=== PATIENT | female | born 1955 | race Caucasian/White ===

== ENCOUNTER → 2019-11-02 13:35 | Outpatient (CLI) | payer BC, MEDICARE, SELFPAY ==
--- NOTE | ~2019-11-02 | MR_ITS ---
EXAMINATION: MR foot RT wo con DATE: 11/02/2019 14:22 INDICATION: Charcot right foot TECHNIQUE: Magnetic resonance imaging (MRI) of the right fore/mid foot was performed without intraven ous contrast. Sequences included sagittal T1-weighted FSE, sagittal fluid sensitive FSE STIR, coronal PD-weighted FS FSE, coronal T1-weighted FSE, axial PD-weighted FS FSE, and axial PD-weighted FSE. COMPARISON: 11/10/11 FINDINGS: New hallux valgus with moderate secondary osteoarthritis. Advanced osteoarthritis consistent with Celeste rcot joint at the right midfoot with cystic changes and fragmentation involving the medial and mid cu neiforms and base of the second and third metatarsals with prominent associated marrow edema. Mild os teoarthritis at the first, fourth and fifth tarsal metatarsal and subtalar joints. Lisfranc ligament appears to remain intact. There is fusiform thickening with intermediate signal along the central com ponent of the plantar aponeurosis consistent with plantar fibromatosis. The region measures approxima tely 1.7 cm proximal to distal and 5 x 7 mm in maximal orthogonal dimensions. The visualized portions of the remaining flexor and extensor tendons appear normal. There is diffuse fatty atrophy and incre ased fluid signal throughout the intrinsic musculature of the foot likely related to acute on chronic denervation change. No joint effusions or other abnormal fluid collections. IMPRESSION: 1. Charcot joint involving the second and third tarsal metatarsal joints. 2. Moderate hallux valgus with moderate osteoarthritis at the first metatarsophalangeal joint. 3. Small region of likely plantar fibromatosis along the central component of the plantar aponeurosis . Reviewed, dictated and finalized at location A. IMPRESSION: 1. Charcot joint involving the second and third tarsal metatarsal joints. 2. Moderate hallux valgus with moderate osteoarthritis at the first metatarsoph alangeal joint. 3. 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
== END ==
PROVIDERS: PCP Internal Medicine; Visit Provider Podiatrist Foot & Ankle Surgery
DX: I73.9 Peripheral vascular disease, unspecified (principal); M20.11 Hallux valgus (acquired), right foot
CPT/HCPCS: 73718

== ENCOUNTER → 2019-11-06 12:41 | Outpatient (CLI) | payer BC, MEDICARE, SELFPAY ==
--- NOTE | ~2019-11-06 | DEXA_ITS ---
Bone Density Report Name: Melody Raphael Age: 64 Sex: Female Ethnicity: White Date of : 1955 Indication: postmenopausal osteoporosis; height loss; Referring Provider: RAMOS, PEDRO Mcmanus Study: Bone densitometry was performed. Exam Date: November 06, 2019 Accession number: [id number] Bone Density: Region BMD T-score Z-score Classification AP Spine (L1-L4) 0.832 -2.0 -0.3 Osteopenia Femoral Neck (Left) 0.695 -1.4 0.1 Osteopenia Total Hip (Left) 0.787 -1.3 -0.1 Osteopenia Femoral Neck (Right) 0.636 -1.9 -0.5 Osteopenia Total Hip (Right) 0.774 -1.4 -0.2 Osteopenia Total Hip Mean 0.781 -1.4 -0.2 Osteopenia World Health Organization criteria for BMD impression classify patients as: Normal (T-score at or above -1.0), Osteopenia (T-score between -1.0 and -2.5), or Osteoporosis (T-score at or below -2.5). 10-year Fracture Risk(1): Major Osteoporotic Fracture 9.5% Hip Fracture 1.2% Reported Risk Factors: [place] (), Neck BMD=0.636, BMI=29.8 (1) FRAX(R) Version 3.08. Fracture probability calculated for an untreated patient. Fracture probability may be lower if the patient has received treatment. Previous Exams: Region Exam Age BMD T-score BMD Change BMD Change Date g/cm2 vs Baseline vs Previous AP Spine(L1-L4) 11/06/2019 64 0.832 -2.0 0.015 0.062* 03/18/2015 59 0.770 -2.5 -0.047* -0.047* 07/31/2010 54 0.817 -2.1 Total Hip(Left) 11/06/2019 64 0.787 -1.3 0.033* 0.031* 03/18/2015 59 0.756 -1.5 0.002 0.002 07/31/2010 54 0.754 -1.5 Total Hip(Right) 11/06/2019 64 0.774 -1.4 0.037* 0.025 03/18/2015 59 0.749 -1.6 0.012 0.012 07/31/2010 54 0.737 -1.7 *Denotes significance at 95% confidence level, LSC for AP Spine = 0.022 g/cm2, LSC for Total Hip = 0.027 g/cm2 Clinical Information Provided by Patient: Has used the following medications: Vitamin D, Calcium, mtv Patient maximum height was 63 Menopause Age: 54 No regular weight bearing exercise Drinks caffeinated beverages Onset of menses at age 13 Number of children 0 Impression: The patient has low bone mass, based on the Total Spine T-score. The patient has an estimated ten-year risk of hip fracture of 1.2% and an estimated ten-year risk of major fracture of 9.5%, based on the WHO FRAX algorithm. No significant bone loss was observed
--- NOTE | ~2019-11-06 | MM_ITS ---
EXAMINATION: MM screening olga BI w valerio HISTORY: Screening mammogram TECHNIQUE: Craniocaudal and mediolateral oblique 3-D tomosynthesis images were obtained and synthetic 2-D images were generated. CAD analysis was submitted and interpreted. COMPARISON: 06/07/2018, 04/22/2017, 04/20/2017, 03/18/2015 BREAST PARENCHYMAL COMPOSITION: The breasts are heterogeneously dense, which may obscure small masses . FINDINGS: Changes of interval stereotactic right breast biopsy are noted. There is no evidence of liss picious mass, calcification, or architectural distortion to suggest malignancy in either breast. Ther e has been no suspicious interval change. IMPRESSION: 1. No mammographic evidence of malignancy. 2. Recommend routine screening mammography in one year. BI-RADS Category 1: Negative Reviewed, dictated and finalized at location A.
== END ==
PROVIDERS: PCP Internal Medicine; Visit Provider Internal Medicine
DX: Z12.31 Encounter for screening mammogram for malignant neoplasm of breast (principal); Z78.0 Asymptomatic menopausal state; M85.89 Other specified disorders of bone density and structure, multiple sites
CPT/HCPCS: 77063; 77067; 77080

== ENCOUNTER → 2020-12-30 07:23 | Outpatient (CLI) | payer BC, MEDICARE, SELFPAY ==
--- NOTE | ~2020-12-30 | MR_ITS ---
EXAMINATION: MR foot RT wo con DATE: 12/30/2020 09:05 INDICATION: Charcot joint at the right foot and ankle TECHNIQUE: Magnetic resonance imaging (MRI) of the right foot was performed without intravenous contr ast which excludes the toes and posterior tuberosity of the calcaneus. Sequences included sagittal T1 -weighted FSE, sagittal fluid sensitive FSE STIR, coronal PD-weighted FS FSE, coronal T1-weighted FSE , axial PD-weighted FS FSE, and axial PD-weighted FSE. COMPARISON: None FINDINGS: Advanced osteoarthritis at the right second-fourth tarsal metatarsal joints and at the medial aspect of the navicular cuneiform joint with associated destructive and cystic bone changes. There is promin ent surrounding marrow edema but no geographic loss of T1 fat signal to suggest ostomy myelitis or ot her pathologic marrow replacing process. Less severe mild osteoarthritis at the right ankle and remai sherri joints in the mid and hindfoot. Hallux valgus with moderate to severe osteoarthritis of the firs t metatarsophalangeal joint. No fracture. The visualized portions of the flexor and extensor tendons are normal. Small amount of fluid along the hernias tendon sheath consistent with mild tenosynovitis. The medial and lateral stabilizing ligaments of the ankle are normal. The Lisfranc ligament complex appears to remain intact. Likely chronic degeneration of the medial collateral ligament complex at th e first metatarsophalangeal joint which appears stretched and attenuated across the medial side of th e head of the first metatarsal. Remaining collateral ligament complex at the second fifth tarsal meta tarsal joints remain normal. No joint effusions. There is likely reactive edema in the soft tissues s urrounding the tarsal metatarsal joints. There is also a diffuse increased fluid signal and moderate fatty atrophy of the intrinsic musculature of the foot consistent with likely acute on chronic denerv ation change such as in the setting of diabetic neuropathy. IMPRESSION: 1. Advanced osteoarthritis at the second-fourth tarsal metatarsal joints and at the configuration bet ween the navicula and medial cuneiform consistent with provided history of Charcot joint. 2. Hallux valgus with moderate to severe osteoarthritis at the first metatarsophalangeal joint. Reviewed, dictated and finalized at location A. IMPRESSION: 1. Advanced osteoarthritis at the second-fourth tarsal metatarsal joints and at the configuration between the navicula and medial cuneiform consistent with pr ovided history of Charcot joint. 2. Hallux valgus with moderate to severe osteoarthritis at the first metatarsop halangeal joint.
== END ==
PROVIDERS: PCP Internal Medicine; Visit Provider Podiatrist Foot & Ankle Surgery
DX: A52.16 Charcot's arthropathy (tabetic) (principal); M20.11 Hallux valgus (acquired), right foot; M19.071 Primary osteoarthritis, right ankle and foot
CPT/HCPCS: 73718

== ENCOUNTER → 2021-01-20 15:19 | Outpatient (CLI) | payer BC, MEDICARE, SELFPAY ==
--- NOTE | ~2021-01-20 | MM_ITS ---
EXAMINATION: MM screening olga BI w valerio HISTORY: Screening mammogram TECHNIQUE: Craniocaudal and mediolateral oblique 3-D tomosynthesis images were obtained and synthetic 2-D images were generated. CAD analysis was submitted and interpreted. COMPARISON: 11/06/2019, 06/07/2018 bilateral screening mammogram examinations BREAST PARENCHYMAL COMPOSITION: The breasts are heterogeneously dense, which may obscure small masses . FINDINGS: There is a 5.2 mm circumscribed mass with halo sign in the posterior left axillary tail, in creased from 3.7 mm size on 11/06/2019. The mammographic appearance is suggestive of benign process. Targeted ultrasound of the left axillary tail is recommended. There is no evidence of suspicious mass, calcification, or architectural distortion to suggest malig cyndi in either breast. There has been no suspicious interval change. IMPRESSION: 1. 5.2 mass at posterior left axillary tail, increased in size from 3.7 mm on 11/06/2019; 2. Targeted ultrasound of left axillary tail 5 mm mass is recommended. BI-RADS Category 0: Incomplete: Needs additional imaging evaluation. Reviewed, dictated and finalized at location A. RICT MANAGER IN TRAINING IMPRESSION: 1. 5.2 mass at posterior left axillary tail, increased in size from 3.7 mm on ; 2. Targeted ultrasound of left axillary tail 5 mm mass is recommended. BI-RADS Category 0: Incomplete: Needs additional imaging evaluation.
== END ==
PROVIDERS: PCP Internal Medicine; Visit Provider Internal Medicine
DX: Z12.31 Encounter for screening mammogram for malignant neoplasm of breast (principal); R92.8 Other abnormal and inconclusive findings on diagnostic imaging of breast
CPT/HCPCS: 77063; 77067

== ENCOUNTER → 2021-02-20 09:08 | Outpatient (CLI) | payer BC, MEDICARE, SELFPAY ==
--- NOTE | ~2021-02-20 | US_ITS ---
US axilla LT 02/20/2021 09:37 Indication: Follow-up left breast mass Procedure: High-resolution Limited ultrasound of the left axilla Comparison: Mammogram dated 01/20/2021 Findings: In the left axillary tail, 14 cm from the nipple there is a 11 mm cyst. Also near this loca tion there is a 1.4 cm lymph node with normal fatty hilum. No suspicious masses to suggest malignancy . No definite mass is identified to correspond to the 5 mm mass seen on mammography. Impression: 1: Probable benign left axillary mass by mammogram. No definite sonographic correlate. There are pat gn cysts and lymph nodes in the left axillary tail. BI-RADS CATEGORY 3-PROBABLY BENIGN FINDING RECOMMENDATION: Six-month follow-up diagnostic left mammogram and possible additional ultrasound sanchez mmended. Reviewed, dictated and finalized at location A. D CARE COORDINATOR Impression: 1: Probable benign left axillary mass by mammogram. No definite sonographic cor relate. There are benign cysts and lymph nodes in the left axillary tail. BI-RADS CATEGORY 3-PROBABLY BENIGN FINDING RECOMMENDATION: Six-month follow-up diagnostic left mammogram and possible bre tional ultrasound recommended.
== END ==
PROVIDERS: PCP Internal Medicine; Visit Provider Internal Medicine
DX: R92.8 Other abnormal and inconclusive findings on diagnostic imaging of breast (principal)
CPT/HCPCS: 76882

== ENCOUNTER 2021-03-25 14:52 | Emergency (ER) | payer OTHER, BC, MEDICARE, SELFPAY ==
[2021-03-25 15:08] VITALS: BP 147/67; PULSE 80; RESP 16; TEMP 36.3; O2SAT 98
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
== END 2021-03-25 16:13 | disposition home or self-care (01) ==
PROVIDERS: Emergency Provider Nurse Practitioner Family; PCP Internal Medicine
DX: M79.622 Pain in left upper arm (principal); M79.7 Fibromyalgia
CPT/HCPCS: 99212; G0463

== ENCOUNTER → 2021-09-01 14:34 | Outpatient (CLI) | payer MEDICARE, SELFPAY ==
--- NOTE | ~2021-09-01 | MMUS_ITS ---
EXAMINATION: MM diagnostic olga LT w valerio, US breast LT complete HISTORY: 5.2 mm circumscribed mass with halo sign in posterior left axillary tail on 01/30/2021 scree sherri mammogram TECHNIQUE: Full field and spot ML, MLO and CC 3-D tomosynthesis images of left breast were performed and synthetic 2-D images were generated. CAD analysis was submitted and interpreted. High resolution left axillary and complete left breast ultrasound including all 4 quadrants and subareolar area was p erformed. COMPARISON: 01/30/2021 bilateral screening mammogram 02/20/2021 left axillary ultrasound BREAST PARENCHYMAL COMPOSITION: The breasts are heterogeneously dense, which may obscure small masses . FINDINGS: MAMMOGRAPHIC FINDINGS: Interval decreased size of left axillary tail circumscribed opacity, currently measuring approximatel y 4.8 mm x 4 mm versus approximately 5.4 x 5.4 mm by comparison mm on 01/20/2021. The circumscribed ma rgins and interval decreased size are most consistent with benign process, likely an axillary tail ly mph node. Occasional benign calcifications. No suspicious mass or architectural distortion, skin thickening or retraction is detected. ULTRASOUND: 1:00 3 cm from nipple: 8 x 8.3 mm sonolucency consistent with cyst 6:00 subareolar: Septated 4.6 x 8.1 x 8 mm cyst 7:00 4 cm from nipple: Parallel circumscribed hypoechoic 3 x 5 mm solid lesion without internal vascu larity or posterior shadowing. 11:00 3 cm from nipple: 11:00 3 cm from nipple: Irregular hypoechoic 3.1 x 3.6 mm mass with mild posterior shadowing. Ultraso und-guided biopsy is recommended. Benign-appearing left axillary lymph nodes are noted. IMPRESSION: 1. Irregular 3.1 x 3.6 mm hypoechoic lesion at 11:00 3 cm from nipple, with mild posterior shadowing; ultrasound-guided biopsy is recommended 2. Ultrasound-guided biopsy of left breast lump o'clock lesion 3 cm from nipple is recommended BI-RADS category 4, suspicious findings. Reviewed, dictated and finalized at location A. IMPRESSION: 1. Irregular 3.1 x 3.6 mm hypoechoic lesion at 11:00 3 cm from nipple, with mil d posterior shadowing; ultrasound-guided biopsy is recommended 2. Ultrasound-guided biopsy of left breast lump o'clock lesion 3 cm from nipple is recommended BI-RADS category 4, suspicious findings.
== END ==
PROVIDERS: PCP Internal Medicine; Visit Provider Internal Medicine
DX: R92.8 Other abnormal and inconclusive findings on diagnostic imaging of breast (principal); N60.02 Solitary cyst of left breast; N63.24 Unspecified lump in the left breast, lower inner quadrant; N63.22 Unspecified lump in the left breast, upper inner quadrant; N63.25 Unspecified lump in the left breast, overlapping quadrants
CPT/HCPCS: 76641; 77061; 77065; G0279

== ENCOUNTER 2021-09-21 09:54 | Outpatient (CLI) | payer MEDICARE, SELFPAY ==
--- NOTE | ~2021-09-21 | US_ITS ---
EXAMINATION: US breast LT limited HISTORY: Left breast mass TECHNIQUE: Limited left breast ultrasound was performed. COMPARISON: 09/01/2021 FINDINGS: Patient presents for ultrasound guided biopsy of a left breast mass identified on recent di agnostic ultrasound. With real-time scanning, the mass has a more cystic appearance than was seen on recent ultrasound. This was discussed with the patient and a course of six-month follow-up targeted u ltrasound was decided upon. IMPRESSION: Probably benign left breast mass. Follow-up targeted left breast ultrasound in six months is recommen ded. BI-RADS category 3, probably benign findings. Reviewed, dictated and finalized at location A. IMPRESSION: Probably benign left breast mass. Follow-up targeted left breast ultrasound in six months is recommended. BI-RADS category 3, probably benign findings.
== END 2021-09-21 09:55 | disposition home or self-care (01) ==
LOC: ANHIMG 09:59
PROVIDERS: PCP Internal Medicine; Visit Provider Internal Medicine
DX: R92.8 Other abnormal and inconclusive findings on diagnostic imaging of breast (principal)
CPT/HCPCS: 76642

== ENCOUNTER 2022-04-20 11:34 | Outpatient (CLI) | payer MEDICARE, SELFPAY ==
--- NOTE | ~2022-04-20 | US_ITS ---
US breast LT limited DATE: 04/20/2022 13:00 INDICATION: Six-month follow-up of mass TECHNIQUE: Targeted ultrasound at 11:00 3 cm from nipple COMPARISON: 04/20/2022 screening mammogram 09/21/2021 Limited left breast ultrasound 09/01/2021 diagnostic left mammogram and complete left breast ultrasound 01/20/2021 bilateral screening mammogram FINDINGS: 11:00 3 cm from nipple: There is an approximately 2.7 x 4 mm hypoechoic lesion with adjacent prominen t vascular color flow signal. Is mildly increased in size compared to 09/01/2021. Ultrasound-guided bi opsy is recommended. IMPRESSION: BI-RADS Category 4: Suspicious abnormality; biopsy should be considered Recommendation: Sonographically guided biopsy of left breast 11:00 lesion [address] Stephen telephoned the report and ultrasound-guided biopsy recommendation on April 20, [address] Weir's voicemail at [phone] Reviewed, dictated and finalized at Location A. Reviewed, dictated and finalized at location A. UTER PUBLISHER IMPRESSION: BI-RADS Category 4: Suspicious abnormality; biopsy should be consid ered Recommendation: Sonographically guided biopsy of left breast 11:00 lesion [address] Stephen telephoned the report and ultrasound-guided biopsy recommendation on [address] Weir's voicemail at [phone]
--- NOTE | ~2022-04-20 | DEXA_ITS ---
Bone Density Report Name: WILLIAM BELL Age: 66 Sex: Female Ethnicity: White Date of : 1955 Indication: postmenopausal; screening for osteoporosis; parental hip fracture; height loss; Referring Provider: RAMOS, PEDRO Mcmanus Study: Bone densitometry was performed. Exam Date: April 20, 2022 Accession number: [id number] Bone Density: Region BMD T-score Z-score Classification AP Spine(L1-L4) 0.867 -1.6 0.2 Osteopenia Femoral Neck (Left) 0.659 -1.7 -0.1 Osteopenia Total Hip (Left) 0.808 -1.1 0.2 Osteopenia Femoral Neck (Right) 0.635 -1.9 -0.3 Osteopenia Total Hip (Right) 0.807 -1.1 0.2 Osteopenia Total Hip Mean 0.808 -1.1 0.2 Osteopenia World Health Organization criteria for BMD impression classify patients as: Normal (T-score at or above -1.0), Osteopenia (T-score between -1.0 and -2.5), or Osteoporosis (T-score at or below -2.5). 10-year Fracture Risk(1): Major Osteoporotic Fracture 18% Hip Fracture 2.0% Reported Risk Factors: [place] (), Neck BMD=0.635, BMI=31.8, parental fracture (1) FRAX(R) Version 3.08. Fracture probability calculated for an untreated patient. Fracture probability may be lower if the patient has received treatment. Clinical Information Provided by Patient: Parent has had a hip fracture Has used the following medications: Vitamin D, Calcium Patient maximum height was 63 Menopause Age: 50 No regular weight bearing exercise Drinks caffeinated beverages Onset of menses at age 13 Number of children 0 Impression: The patient has low bone mass, based on the Right Femoral Neck T-score. The patient has an estimated ten-year risk of hip fracture of 2% and an estimated ten-year risk of major fracture of 18%, based on the WHO FRAX algorithm. The patient has risk factors, including: parental hip fracture. Discussion: BONE DENSITY IS LOW AT ONE OR MORE SKELETAL SITES. This patient's lowest T-score is low at one or more skeletal sites. It meets the World Health Organization's (WHO) criteria for ?low bone mass? (T-score between -1.0 and -2.5). The patient's 10-year risk of fracture as calculated by FRAX is less than the threshold where pharmacological therapy is recommended by the National Osteoporosis Foundation (NOF). However, all treatment decisions require clinical judgment and consideration of individual patient factors, including patient preferences, comorbidities, previous drug use, risk factors not captured in the FRAX model (e.g., frailty, falls, vitamin D deficiency, increased bone turnover, interval significant decline in bone density) and possible under or overestimation of fracture risk by FRAX. The patient should follow a healthful lifestyle (good nutrition with adequate calcium and vitamin D, and appropriate weight-bearing exercise).
--- NOTE | ~2022-04-20 | MM_ITS ---
EXAMINATION: MM screening olga BI w valerio HISTORY: Screening mammogram TECHNIQUE: Craniocaudal and mediolateral oblique 3-D tomosynthesis images were obtained and synthetic 2-D images were generated. CAD analysis was submitted and interpreted. COMPARISON: 09/21/2021 Limited left breast ultrasound 09/01/2021 diagnostic left mammogram and complete left breast ultrasound examination 01/20/2021 bilateral screening mammogram 11/06/2019 bilateral screening mammogram BREAST PARENCHYMAL COMPOSITION: The breasts are heterogeneously dense, which may obscure small masses . FINDINGS: There is no evidence of suspicious mass, calcification, or architectural distortion to sugg est malignancy in either breast. There has been no suspicious interval change. IMPRESSION: 1. No mammographic evidence of malignancy. 2. Recommend routine screening mammography in one year. BI-RADS Category 1: Negative Reviewed, dictated and finalized at location A. L MECHANIC
== END 2022-04-20 11:35 | disposition home or self-care (01) ==
PROVIDERS: PCP Internal Medicine; Visit Provider Internal Medicine
DX: Z12.31 Encounter for screening mammogram for malignant neoplasm of breast (principal); Z78.0 Asymptomatic menopausal state; R92.8 Other abnormal and inconclusive findings on diagnostic imaging of breast; M85.89 Other specified disorders of bone density and structure, multiple sites
CPT/HCPCS: 76642; 77063; 77067; 77080

== ENCOUNTER 2022-04-27 09:58 | Outpatient (CLI) | payer MEDICARE, SELFPAY ==
--- NOTE | ~2022-04-27 | US_ITS ---
US_BCALIMG_US 04/27/2022 11:28 Indication: Left breast mass identified on recent examination. Biopsy recommended. Procedure: High-resolution Limited ultrasound of the left breast Comparison: 04/20/2022 Findings: Initial images of the left breast demonstrate a minimally complicated cyst at 11:00, 3 cm f rom the nipple in the area of sonographic concern on prior study. An 18-gauge needle was advanced int o the lesion and aspiration performed. 0.5 cc of clear fluid obtained without complication with compl ete collapse of the cyst. Impression: 1: Complete resolution of benign left breast cyst at 11:00, 3 cm from the nipple post aspiration. Routine yearly screening mammogram and regular clinical breast examination are recommended. BI-RADS CATEGORY 2 - BENIGN FINDINGS Reviewed, dictated and finalized at location A. EGE OR UNIVERSITY BUSINESS MANAGER Impression: 1: Complete resolution of benign left breast cyst at 11:00, 3 cm from the nippl e post aspiration. Routine yearly screening mammogram and regular clinical breast examination are recommended. BI-RADS CATEGORY 2 - BENIGN FINDINGS
== END 2022-04-27 09:59 | disposition home or self-care (01) ==
PROVIDERS: PCP Internal Medicine; Visit Provider Internal Medicine
DX: N60.02 Solitary cyst of left breast (principal)
CPT/HCPCS: 19000; 76942

== ENCOUNTER 2022-05-10 08:50 | Day surgery (SDC) | payer MEDICARE, SELFPAY ==
[2022-03-23 08:30] VITALS: BMI 31.1
[2022-05-03 13:27] VITALS: BMI 31.0
--- NOTE | 2022-05-07 16:21 | PM.HPGS ---
History of Present Illness History of Present Illness Consent: Risks, benefits, and alternatives have been discussed and questions answered. Patient agrees to proceed with procedure. Chief complaint: Noeplasm Screening Narrative: Melody Raphael is a 66 year old female Who was referred for colon cancer screening. Review of Systems Review of Systems: All systems reviewed & are unremarkable except as noted in HPI and below PMFSH Past Medical History Medical History Charcot foot due to diabetes mellitus Chronic pain Chronic, continuous use of opioids High blood pressure Neuropathy Surgical History Surgical History H/O breast biopsy 5xs - benign History of orthopedic surgery left foot 3xs on right Family History Family History Other Acute myocardial infarction Hodgkin's disease Hypertension Social History Social History Smoking status: Former smoker Alcohol intake: never Substance use: never Substance use type: does not use Living arrangements: alone Occupation/Education: occupation Gender identity (if verbalized by the patient): Female Spiritual care concerns: No Meds Home Medications and Allergies Home Medications Medication Instructions Recorded Confirmed Type gabapentin 800 mg tablet 800 mg PO QID 03/25/21 05/03/22 History hydrochlorothiazide 25 mg tablet 25 mg PO DAILY 03/25/21 05/10/22 History hydrocodone 7.5 mg-acetaminophen 1 tablet PO BID PRN Pain 03/25/21 05/10/22 History 325 mg tablet morphine 15 mg tablet,extended 15 mg PO DAILY 03/25/21 05/10/22 History release potassium chloride 20 mEq 20 meq PO DAILY 03/25/21 05/03/22 History tablet,extended release(part/cryst) (Klor-Con M) duloxetine 30 mg capsule,delayed 30 mg PO DAILY 11/03/21 05/03/22 History release fluconazole 150 mg tablet 150 mg PO Q72H #3 tabs 11/04/21 05/03/22 Rx (Diflucan) nystatin 100,000 unit/gram topical 1 applic topical BID #60 grams 11/04/21 05/03/22 Rx powder triamcinolone acetonide 0.5 % 1 applic topical BID #15 grams 11/04/21 05/03/22 Rx topical cream Allergies Allergy/AdvReac Type Severity Reaction Status Date / Time sulfamethoxazole Allergy Unknown Rash Verified 05/10/22 09:53 trimethoprim Allergy Unknown Rash Verified 05/10/22 09:53 Exam Const: General: alert Orientation/consciousness: patient oriented x3 Resp: Auscultation: clear to auscultation bilaterally Cardio: Rhythm: regular rhythm GI: GI Palp: Yes Soft to palpation and No Tenderness to palpation present (GI) Neuro: General: patient oriented x3 Assessment and Plan Assessment and plan (1) Colon cancer screening: Code(s): Z12.11 - Encounter for screening for malignant neoplasm of colon Status: Acute Assessment and Plan: Colonoscopy with possible biopsy or polypectomy or cautery or injection of substances.
--- NOTE | 2022-05-10 07:52 | WPDANESEPPF ---
Anes - Initial Pre Proc Eval Procedure: Operation Date: 05/10/22 11:00 Proposed Procedures p Screening Colonoscopy - Abelardo Galan MD Date/Time: 05/10/22 07:52 Surgeon: Abelardo Galan MD Pre Op Diagnosis: Noeplasm Screening Patient Data Age: 66 Gender: F Height: 1.57 m Weight: 77 kg Allergies Allergy/AdvReac Type Severity Reaction Status Date / Time sulfamethoxazole Allergy Unknown Rash Verified 05/10/22 09:53 trimethoprim Allergy Unknown Rash Verified 05/10/22 09:53 Home Medications Medication Instructions Recorded Confirmed Type gabapentin 800 mg tablet 800 mg PO QID 03/25/21 05/03/22 History hydrochlorothiazide 25 mg tablet 25 mg PO DAILY 03/25/21 05/03/22 History hydrocodone 7.5 mg-acetaminophen 1 tablet PO BID PRN Pain 03/25/21 05/03/22 History 325 mg tablet morphine 15 mg tablet,extended 15 mg PO DAILY 03/25/21 05/03/22 History release potassium chloride 20 mEq 20 meq PO DAILY 03/25/21 05/03/22 History tablet,extended release(part/cryst) (Klor-Con M) duloxetine 30 mg capsule,delayed 30 mg PO DAILY 11/03/21 05/03/22 History release fluconazole 150 mg tablet 150 mg PO Q72H #3 tabs 11/04/21 05/03/22 Rx (Diflucan) nystatin 100,000 unit/gram topical 1 applic topical BID #60 grams 11/04/21 05/03/22 Rx powder triamcinolone acetonide 0.5 % 1 applic topical BID #15 grams 11/04/21 05/03/22 Rx topical cream Patient hx anesthesia problems: none Family hx anesthesia problems: none Results Review: All pre-operative results and documents have been reviewed as part of the pre-operative evaluation. [facility] Past Medical History Medical History (Updated 05/10/22 @ 10:05 by Arsalan Newton DO) Charcot foot due to diabetes mellitus Chronic pain Chronic, continuous use of opioids High blood pressure Neuropathy Surgical History Surgical History H/O breast biopsy 5xs - benign History of orthopedic surgery left foot 3xs on right Family History Family History Other Acute myocardial infarction Hodgkin's disease Hypertension Social History Social History (Updated 11/04/21 @ 09:07 by Alisia Quarles MA) Smoking status: Former smoker Alcohol intake: never Substance use: never Substance use type: does not use Living arrangements: alone Occupation/Education: occupation Gender identity (if verbalized by the patient): Female Spiritual care concerns: No Anes - Eval Final PreProcedure Day of Procedure 05/10/22 07:52 Patient weight: obese Heart: regular rate and rhythm Lungs: clear to auscultation Airway: Mallampati scale class II Neurological: alert and oriented Last oral intake: >/= 8 hours ASA classification: III Emergent: no Anesthetic plan: proceed Anesthesia type and monitoring: general GIVS and standard monitoring Results Review: All pre-operative results and documents have been reviewed as part of the pre-operative evaluation. Informed Consent: The patient's anesthetic plan and its attendant risks and benefits were discussed with the patient/family/POA. Questions were solicited and answers provided to the satisfaction of the patient/family/POA.
[2022-05-10 09:56] VITALS: BP 155/100; PULSE 88; RESP 18; TEMP 36.3; O2SAT 97
[2022-05-10] MEDS: LACTATED RINGERS 1,000 ML 150 ML IV CONT (10:13)
[2022-05-10 11:08] VITALS: BP 165/80; PULSE 84; RESP 14; O2SAT 97
[2022-05-10 11:18] VITALS: BP 158/90; PULSE 77; RESP 18; O2SAT 98
[2022-05-10 11:28] VITALS: BP 163/85; PULSE 72; RESP 18; O2SAT 100
--- NOTE | 2022-05-10 13:34 | WPDANESPN ---
Anes - Prog Note Post-Op Date/Time: 05/10/22 13:34 Cardiovascular status: normal Respiratory status: normal Airway patency: baseline Mental status: baseline Post-Op hydration status: normal Vital Signs: Last Vital Signs Temp 36.3 C L 05/10/22 09:56 Pulse 72 05/10/22 11:28 Resp 18 05/10/22 11:28 BP 163/85 H 05/10/22 11:28 Pulse Ox 100 05/10/22 11:28 O2 Del Method Room Air 05/10/22 11:28 Pain Score (VAS): 0 I/O: Intake & Output 05/09/22 05/10/22 05/10/22 23:59 07:59 15:59 Intake Total 350 Balance 350 Post-procedural complaints: none Patient Feedback: Patient satisfied with anesthetic care. Other Findings: Patient vital signs back to baseline. Patient denies nausea and vomiting. Patient's pain under control. Patient OK for discharge.
== END 2022-05-10 11:42 | disposition home or self-care (01) ==
PROVIDERS: PCP Internal Medicine; Visit Provider Internal Medicine Gastroenterology
PROC: 0DJD8ZZ Inspection of Lower Intestinal Tract, Via Natural or Artificial Opening Endoscopic (ICD-10-PCS; CPT 45378; principal; 2022-05-10 11:00)
DX: Z12.11 Encounter for screening for malignant neoplasm of colon (principal)
CPT/HCPCS: 45378

== ENCOUNTER 2023-10-25 11:47 | Outpatient (CLI) | payer MEDICARE, SELFPAY ==
--- NOTE | ~2023-10-25 | MMUS_ITS ---
EXAMINATION: MM diagnostic olga BI w valerio, US breast LT complete HISTORY: Palpable left breast abnormality TECHNIQUE: Additional 3-D tomosynthesis images of the breasts were performed and synthetic 2-D images were generated. CAD analysis was submitted and interpreted. High resolution complete left breast ult rasound was performed. COMPARISON: Comparison to multiple prior studies sequentially, with oldest reviewed study dated 06/07. BREAST PARENCHYMAL COMPOSITION: Dense: The breasts are heterogeneously dense, which may obscure small masses FINDINGS: MAMMOGRAPHIC FINDINGS: The right breast is stable without evidence for malignancy. There are developing asymmetries in the u pper central aspect of the left breast which is obscured by dense fibroglandular tissue. ULTRASOUND: Complete US of all 4 quadrants of the breast/s and retroareolar region was reviewed. At 11:00, 6 cm f rom the nipple there is a cluster of 3 solid mass is. There is a 12 x 12 x 9 mm slightly irregular sh aped mass with parallel configuration and internal vascularity. There is also an irregular shaped hyp oechoic mass measuring 1.6 x 1.3 x 0.9 cm with marginal vascularity and mixed posterior attenuation. There is a smaller 8mm mass which has a round configuration. No internal vascularity or posterior fea tures. At 1:00, 6 cm from the nipple, there is a round 7 mm mass without internal vascularity or post erior features. There are low level internal echoes. This mass is likely benign. Six-month follow-up ultrasound recommended to assess stability of this lesion. IMPRESSION: 1. Multiple abnormal left breast masses in the area of palpable concern at 11:00, 6 cm from the nippl e. 2. Ultrasound-guided left breast biopsies recommended. BI-RADS category 4, suspicious findings. Reviewed, dictated and finalized at location B. IMPRESSION: 1. Multiple abnormal left breast masses in the area of palpable concern at 11:0 0, 6 cm from the nipple. 2. Ultrasound-guided left breast biopsies recommended. BI-RADS category 4, suspicious findings.
== END 2023-10-25 11:48 ==
PROVIDERS: PCP Internal Medicine; Visit Provider Internal Medicine
DX: Z12.31 Encounter for screening mammogram for malignant neoplasm of breast (principal); N63.20 Unspecified lump in the left breast, unspecified quadrant; R92.8 Other abnormal and inconclusive findings on diagnostic imaging of breast
CPT/HCPCS: 76641; 77062; 77066; G0279

== ENCOUNTER 2023-12-07 09:29 | Outpatient (CLI) | payer MEDICARE, SELFPAY ==
--- NOTE | ~2023-12-07 | MMUS_ITS ---
MM post biopsy diagnostic LT, US breast biopsy LT w image EXAMINATION: US GUIDED NEEDLE BIOPSY WITH VACUUM ASSISTANCE DATE: 12/07/2023 11:15 CDT INDICATION: Left breast masses seen on recent examination. Ultrasound-guided core biopsy is requeste d to evaluate for malignancy. BREAST PARENCHYMAL COMPOSITION: Dense: The breasts are heterogeneously dense, which may obscure small masses TECHNIQUE AND FINDINGS: The risks and potential benefits of the procedure were discussed with the patient, and written inform ed consent was obtained. After sterile preparation of the left breast, 1% lidocaine was utilized for local anesthesia. 1% lidocaine with epinephrine was used for deep anesthesia. A cluster of masses is identified in the left breast at 11:00, 6 cm from the nipple which all appear to communicate. A 10G vacuum-assisted biopsy gun needle was advanced through to the outer edge of the region of interest from a superior approach utilizing sonographic guidance. A total of 4 tissue cor e samples were obtained through the lesion. An Inrad tissue marker clip was then placed at the biops y site. Hemostasis was achieved. The patient tolerated procedure well and there was no evidence of immediate complication. The patien t was given verbal instructions partly is from the department. Left breast mammograms to document ti ssue marker clip placement. The tissue samples were submitted to surgical pathology for histologic an alysis. IMPRESSION: 1. Successful ultrasound-guided vacuum-assisted biopsy of left breast mass with post procedure mammo gram for marker placement. Please refer to pathology report for histologic analysis. Reviewed, dictated and finalized at location B. IMPRESSION: 1. Successful ultrasound-guided vacuum-assisted biopsy of left breast mass wit h post procedure mammogram for marker placement. Please refer to pathology repo rt for histologic analysis.
== END 2023-12-07 09:30 | disposition home or self-care (01) ==
PROVIDERS: PCP Internal Medicine; Visit Provider Internal Medicine
DX: C50.212 Malignant neoplasm of upper-inner quadrant of left female breast (principal); R92.8 Other abnormal and inconclusive findings on diagnostic imaging of breast
CPT/HCPCS: 19083; 77065; 88305; 88360; A4648